=== PATIENT | male | born 1960 | race Caucasian/White ===

== ENCOUNTER 2025-05-14 06:19 | Emergency (ER) | payer OTHER, SELFPAY ==
[2025-05-14] VITALS (7 sets, daily range): BP systolic 136–180; BP diastolic 97–120; BMI 27.1
[2025-05-14 06:49] LABS: Hematocrit 45.3 % (39.0-52.0); Hemoglobin 15.7 g/dL (13.0-18.0); Mean Corp Hgb Conc. 34.7 g/dL (33.0-37.0); Mean Corpuscular Volume 87.1 fL (80.0-94.0); Nucleated Red Blood Cells % 0 % (-); Platelet Count 161 10^3/uL (130-400); Red Cell Dist. Width 12.7 % (11.5-14.5)
[2025-05-14 07:13] LABS: ALT (SGPT) 44 U/L (0-50); AST (SGOT) 31 U/L (17-59); Albumin 4.6 g/dl (3.5-5.0); Alkaline Phosphatase 89 U/L (38-126); Blood Urea Nitrogen 21 mg/dl (9-20); Calcium 9.3 mg/dl (8.4-10.2); Carbon Dioxide 24 mmol/L (22-30); Chloride 111 mmol/L (98-107); Glucose 111 mg/dl (70-99); Potassium 3.9 mmol/L (3.5-5.1); Sodium 141 mmol/L (135-145); Total Protein 7.0 g/dl (6.3-8.2); eGFR > 60.00
[2025-05-14 07:14] LABS: Troponin I 0.014 ng/ml
--- NOTE | 2025-05-14 07:49 | ED.GENMED ---
History of Present Illness
<Matt Hurtado PA-C - Last Filed: 05/14/25 12:48>
General
Chief Complaint: Blood Pressure Problem
Source: patient and spouse
Time Seen by Provider: 05/14/25 07:32
History of Present Illness
History of Present Illness:
65-year-old male with no significant past medical history presenting to the emergency department for evaluation after he awoke this morning around 1 AM from sleep stating that he just felt off, checked his blood pressure a couple times noting that
it was significantly elevated with the highest reading being 181/126. Patient notes that on Friday this week he also felt off throughout the day noting his blood pressure was elevated, was urinating more than usual and felt a little bit short of
breath but all of the symptoms subsided. Patient attributed this to he normally drinks herbal teas but accidentally had some black tea and thought it was related to caffeine. Patient does state that he monitors his blood pressure at home, will
intermittently have readings that are slightly elevated but for the most part his blood pressure is well-controlled. Presently he states he is feeling much better and asymptomatic. Denies any chest pain, current palpitations, diaphoresis,
abdominal pain, nausea, vomiting, bowel changes or urinary symptoms. Family history was noted for father and grandfather having strokes. Social history noncontributory. Patient does note last weekend he was at [facility] and had walked 6 miles
with a 20 pound weight vest and felt normal while doing so.
Past History
<Matt Hurtado PA-C - Last Filed: 05/14/25 12:48>
Past History
ED Past Medical History: None
ED Past Surgical History: None
Social History
Tobacco: Non-smoker
Alcohol: Occasional
Drug: None
Personal:
Living: with family
Employment: Employed
Review of Systems
<Matt Hurtado PA-C - Last Filed: 05/14/25 12:48>
Review of Systems
All Other Systems: ROS reviewed and negative except as documented in HPI and ROS
Phy Exam
<Matt Hurtado PA-C - Last Filed: 05/14/25 12:48>
Physical Exam
Physical Exam:
GENERAL: Alert , in no apparent distress
HEAD: Normocephalic atraumatic
EYE: Clear conjunctiva
NECK: Supple
ENT: o/p clr, mmm.
CARDIAC: Regular rate and rhythm, systolic murmur at the left sternal border.
LUNGS: Clear breath sounds bilaterally, no acute respiratory distress, no wheezes/rales/rhonchi
ABDOMEN: Soft, without focal tenderness, no r/g, no cvat
NEUROLOGICAL: Alert and oriented
SKIN: Warm and dry, skin intact.
MUSCULOSKELETAL: No edema, well perfused.
PSYCH: Normal and appropriate interaction.
Scores
<Matt Hurtado PA-C - Last Filed: 05/14/25 12:48>
Heart Failure Risk
Heart Failure Risk Score: Not Applicable
Heart Score for Chest Pain Patients
STEMI patient?: Not applicable
Withdrawal Assessment of Alcohol
Withdrawal Assessment Completed?: Not applicable
Course
<Matt Hurtado PA-C - Last Filed: 05/14/25 12:48>
Orders/Labs/Results
Orders:
Orders
05/14/25 06:30
Electrocardiogram (*1) Urgent
Reason for Study: Other
Other Reason for Exam: Respiratory Distress
Cardiac Monitoring- Treatment ONCE
EKG- Treatment ONCE
IV Insert/Care/Rem.- Treatment PRN
CR Chest - 2 Views Urgent
Comment:
Reason For Exam: respiratory distress
O2 Therapy [RESP] Urgent
Titrate/Wean O2 to maintain O2 sat greater than (%): 93
Special Instructions: TO MAINTAIN CONTINUOUS O2 SATS >/= 93%
Pulse Ox/cont/shift [RESP] Urgent
Quantity: 1
Special Instructions: continuous pulse ox
05/14/25 06:42
Complete Blood Count/With Diff Urgent
Comprehensive Metabolic Panel Urgent
NT-proBNP Urgent
Troponin I Urgent
05/14/25 09:54
Aspirin Chewable [Low Strength Aspirin] 324 mg PO NOW STA
05/14/25 09:57
Valsartan [Diovan] 80 mg PO NOW STA
05/14/25 10:43
Troponin I Routine
05/14/25 20:00
Valsartan [Diovan] 80 mg PO BID
05/15/25 08:00
Aspirin Chewable [Low Strength Aspirin] 81 mg PO DAILY
Abnormal Lab Results
05/14/25
06:42
MPV 10.5 H fL
(7.4-10.4)
Lymphocytes % 18.3 L %
(20.5-51.1)
Chloride 111 H mmol/L
(98-107)
BUN 21 H mg/dl
(9-20)
Glucose 111 H mg/dl
(70-99)
05/14/25 06:42
05/14/25 06:42
Vital Signs
Initial and Last Documented VS:
Initial Vital Signs
Temp Pulse Resp BP Pulse Ox
99.1 F 98 20 161/110 98
05/14/25 06:24 05/14/25 06:24 05/14/25 06:24 05/14/25 06:24 05/14/25 06:24
Last Documented Vital Signs
Temp Pulse Resp BP Pulse Ox
99.1 F 75 11 141/97 98
05/14/25 06:24 05/14/25 10:05 05/14/25 10:00 05/14/25 10:05 05/14/25 10:00
<Deshawn Montano, DO - Last Filed: 05/14/25 08:05>
Orders/Labs/Results
Orders:
Orders
05/14/25 06:30
Electrocardiogram (*1) Urgent
Reason for Study: Other
Other Reason for Exam: Respiratory Distress
Cardiac Monitoring- Treatment ONCE
EKG- Treatment ONCE
IV Insert/Care/Rem.- Treatment PRN
CR Chest - 2 Views Urgent
Comment:
Reason For Exam: respiratory distress
O2 Therapy [RESP] Urgent
Titrate/Wean O2 to maintain O2 sat greater than (%): 93
Special Instructions: TO MAINTAIN CONTINUOUS O2 SATS >/= 93%
Pulse Ox/cont/shift [RESP] Urgent
Quantity: 1
Special Instructions: continuous pulse ox
05/14/25 06:42
Complete Blood Count/With Diff Urgent
Comprehensive Metabolic Panel Urgent
NT-proBNP Urgent
Troponin I Urgent
05/14/25 09:54
Aspirin Chewable [Low Strength Aspirin] 324 mg PO NOW STA
05/14/25 09:57
Valsartan [Diovan] 80 mg PO NOW STA
05/14/25 10:43
Troponin I Routine
05/14/25 20:00
Valsartan [Diovan] 80 mg PO BID
05/15/25 08:00
Aspirin Chewable [Low Strength Aspirin] 81 mg PO DAILY
Abnormal Lab Results
05/14/25
06:42
MPV 10.5 H fL
(7.4-10.4)
Lymphocytes % 18.3 L %
(20.5-51.1)
Chloride 111 H mmol/L
(98-107)
BUN 21 H mg/dl
(9-20)
Glucose 111 H mg/dl
(70-99)
05/14/25 06:42
05/14/25 06:42
Vital Signs
Initial and Last Documented VS:
Initial Vital Signs
Temp Pulse Resp BP Pulse Ox
99.1 F 98 20 161/110 98
05/14/25 06:24 05/14/25 06:24 05/14/25 06:24 05/14/25 06:24 05/14/25 06:24
Last Documented Vital Signs
Temp Pulse Resp BP Pulse Ox
99.1 F 75 11 141/97 98
05/14/25 06:24 05/14/25 10:05 05/14/25 10:00 05/14/25 10:05 05/14/25 10:00
<Matt Hurtado PA-C - Last Filed: 05/14/25 12:48>
MDM/Problems Addressed
Differential Diagnosis Includes:
Hypertensive Urgency/Emergency
Valvular Dysfunction
Cardiomyopathy
ACS
Electrolyte Imbalance
Anemia
DM
Cardiac Arrhythmia
Caffeine ingestion
MDM/Problems Addressed:
65-year-old male presenting to the emergency department for evaluation of elevated blood pressures, Friday noted he felt a little bit of shortness of breath and palpitations. Most of the symptoms seem to have resolved although this morning around 1
AM he noted just feeling 'off' on arrival here patient had labs and EKG initiated, EKG nonischemic but does show a left bundle branch block, no EKGs to compare to other than 1 done 14 years ago which did not have the left bundle branch block. Labs
do show an elevated BNP, chest x-ray does show cardiomegaly with Meera B-lines. Patient hypertensive on multiple rechecks here. Will discuss case with cardiology, Dr. Montano to also see patient. Disposition pending.
<Matt Hurtado PA-C - Last Filed: 05/14/25 12:48>
*Radiology
Radiology exam reviewed: preliminary read by ED provider (Cardiomegaly)
*Pulse Oximetry
SaO2: 99
Oxygen Mode of Delivery: Room air
Patient hypoxic: no
*EKG
Heart Rate: 92
Rate: normal
Rhythm: sinus
QRS Pattern: left bundle branch block
*Enterprise Resource Analyst Interpretation
Rate: normal
Heart Rate: 88
Rhythm: sinus
*Critical Care Note
Total Time (30-74mins, 75-104mins- exclusive of procedures): Not Applicable
<Matt Hurtado PA-C - Last Filed: 05/14/25 12:48>
Patient Management
Social determinants of health affecting care: Living situation and Strong social support
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
Escalation/DeEscalation of care consider admission/obs:
Patient seen by cardiology team who will be initiating the patient on valsartan 80 mg twice daily and 81 mg of aspirin once daily. They will have the office staff contact the patient on Friday to schedule outpatient echocardiogram and stress test.
Patient feels comfortable being discharged home. Aware of return precautions.
ED Attending Note
<Matt Hurtado PA-C - Last Filed: 05/14/25 12:48>
-
Portions of this chart may have been created with voice recognition software.� Occasional wrong word or��sound alike� substitutions may have occurred due to the inherent limitations of voice recognition software.
<Deshawn Montano DO - Last Filed: 05/14/25 08:05>
ED Attending Note
Patient seen and examined by attending physician: Yes
I performed the substantive portion of visit, reviewed & personally made and approve the management plan that is documented in note by myself or HENRRY.: Yes
Discharge Plan
Departure
Patient Disposition: Home (Routine Discharge)
Date of Disposition: 05/14/25
Time of Disposition: 11:43
Patient with high blood pressure during this ER visit?: Yes
Discharge Problem:
Hypertension
Instructions: High Blood Pressure (DC)
Prescriptions:
New
valsartan 80 mg tablet
80 mg PO BID Qty: 60 0RF
aspirin 81 mg tablet
81 mg PO DAILY Qty: 30 0RF
Referrals:
Cal Norwood MD [Family Provider, Family Practice]
Chi Camarillo MD [Active, Cardiology]
Interventions
Interventions:
*Risk Screen - Suicide Last Done: 05/14/25 06:24
*General Assessment Last Done: 05/14/25 06:24
*Neglect/Abuse Screening Last Done: 05/14/25 06:24
*ED- Fall Risk Assessment Last Done: 05/14/25 06:24
*ED COVID-19 Vaccine History Last Done: 05/14/25 06:24
*Nursing Disposition Last Done: 05/14/25 11:56
ED- Cardiac Assessment Last Done: 05/14/25 07:50
ED- Neurological Assessment Last Done: 05/14/25 07:50
ED- Pulmonary Assessment Last Done: 05/14/25 07:50
Discharge Date and Time
Discharge Date/Time: 05/14/25 11:57
Print Language: TAMAZIGHT
--- NOTE | 2025-05-14 09:39 | CON.CAR ---
Addendum entered and electronically signed by Chi Camarillo MD 05/14/25 12:18:
I saw and evaluated the patient, and I provided the substantive portion of the medical decision making.
I reviewed and agree with the note by Ms Greenfield and it accurately reflects our care.
I personally performed the medical decision making of the this encounter and my assessment and plan is below:
He has no clear symptoms and certainly no obvious anginal symptoms. This could be related to his HTN and his troponins are essentially normal. He is active and has had no significant exertional symptoms.
His significant HTN could be the cause and would recommend anti-HTN treatment as well as further eval of atypical symptoms this upcoming week.
- Valsartan 80 mg bid
- lexiscan nuc stress
- echocardiogram
Original Note:
Consultation
Consultation Request
Date/Time Consultation Requested: 05/14/2025 0800
Date/Time Consultation Performed: 05/14/2025 0900
Requesting Provider: Dr. Montano
Performing Provider:
Reason for Consultation: SOB, hypertension, new LBBB
Medical History
-
Chief Complaint: SOB, elevated BP
History of Present Illness:
65 y/o pt who presents to ER today after 2 episodes this week of just not feeling well. 1st episode was on Friday at work. He felt more SOB with walking from his desk to the bathroom. He notes his heart was pounding at that time. He sat and it
improved. When he went home he checked his BP and was 170/100 mmhg. Later that night returned to 136/70. He woke this am 1 am felt not right. Mild SOB, heart felt like it was pounding he could not get comfortable. he then woke at 530a and still
felt the same. He took his BP and it was 190/126, 181/120 and came to ER. He does note he may have had some slight discomfort in the L shoulder this am as well. He currently does not have that.
-
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
Past Medical History
Past Medical History: Other (BPH, cataracts)
Past Surgical History: None
Social History
Tobacco: Non-Smoker
Alcohol: Occasional
Personal:
Living: With Family
Employment: Employed
Family History
Family History: Other (DAD CVA in his 60's. Mom from pancreatic cancer)
Allergies / Home Medications
Allergy/AdvReac Type Severity Reaction Status Date / Time
No Known Allergies Allergy Verified 05/14/25 06:23
�Medication �Instructions �Recorded �Confirmed �Type
No Meds [No Current Medications] 05/14/25 05/14/25 History
Review of Systems
-
History Source: Patient
Constitutional: No Symptoms
Respiratory: No Symptoms
Cardiac: No Symptoms
Abdomen/GI: No Symptoms
Neurological: No Symptoms
Physical Exam
Vital Signs
Temp Pulse Resp BP Pulse Ox
99.1 F 92 17 147/108 99
05/14/25 06:24 05/14/25 07:40 05/14/25 07:40 05/14/25 07:51 05/14/25 07:51
Lab Results
05/14/25 06:42
05/14/25 06:42
Troponin I 0.014 ng/ml 05/14/25 06:42
Kuq-Z-Iwwpphsdsot Pept 4640 pg/ml 05/14/25 06:42
Physical Exam
General: Well Developed, Well Nourished and No Apparent Distress
HEENT: Normocephalic and Moist Mucous Membranes
Respiratory: Clear (decreased bases) and Non Labored Respirations
Cardiac: S1/S2 and Regular Rhythm
Breast: Deferred by me
GI: Soft, Non Tender and Normal Bowel Sounds
Skin: Warm and Dry
Neuro: AO x 3
Psych: Calm
Impression / Plan
-
HTN:
-start valsartan 80mg po BID
-BMP in 1 week
-follow up as OP
LBBB:
-unknown duration
-first troponin normal, check second
-needs OP echo, lexiscan stress for eval
SOB:
-new LBBB duration unknow
-HTN on eval
-OP work up .
hyperlipidemia:
-noted in OP PCP chart
-09/2023 lipids: TC 208,TG367, CDR731, HDL 44
-update as OP
elevated glucose:
- OP hgba1c 5.5 09/2023.
Will have OP office call pt to arrange follow up and testing .
Data Reviewed
-
EKG: Tracing Personally Visualized and interpreted (NSR 92 bpm, LBBB)
Radiology: Report Reviewed by me (CXR 05/14/2025:Cardiomegaly. Multiple thin small horizontal densities in the lateral aspect of both lower lungs.in the location of Meera B lines, but the vasculature does not appear to be actively congested.)
Labs: Labs Reviewed by me, Discussed with Physician and Discussed with Patient
Old Records: Reviewed
Critical Care Time (in minutes): OP PCP notes from 10/01/2023 summarized as above.
[2025-05-14] MEDS: DIOVAN 80 MG PO (10:05)
[2025-05-14] MEDS: LOW STRENGTH ASPIRIN 324 MG PO (10:05)
[2025-05-14 11:24] LABS: Troponin I 0.015 ng/ml
== END 2025-05-14 11:57 | disposition home or self-care (01) ==
LOC: EMR 06:19
PROVIDERS: Emergency Medicine; Nurse Practitioner; EMERGENCY PHYSICIAN Emergency Medicine; FAMILY PHYSICIAN Family Medicine
DX: I10 Essential (primary) hypertension (principal); R06.02 Shortness of breath; I44.7 Left bundle-branch block, unspecified; E78.5 Hyperlipidemia, unspecified; I51.7 Cardiomegaly
CPT/HCPCS: 99285; 71046; 80053; 83880; 84484; 85025; 93005

== ENCOUNTER → 2025-05-24 09:01 | Outpatient (REF) | payer OTHER, SELFPAY | LOC: HWRCS 09:01 | PROVIDERS: ATTENDING PHYSICIAN Internal Medicine Cardiovascular Disease; FAMILY PHYSICIAN Family Medicine | DX: I44.7 Left bundle-branch block, unspecified (principal) | CPT/HCPCS: 93306 ==

== ENCOUNTER 2025-05-27 11:17 | Day surgery (SDC) | payer OTHER, SELFPAY ==
[2025-05-27] VITALS (10 sets, daily range): BP systolic 122–144; BP diastolic 73–94; BMI 27.4
--- NOTE | 2025-05-27 20:59 | ITS.CL.PN ---
Mid Level Java Developer - Procedure Note
Procedure
Procedure Note:
CARDIAC CATHETERIZATION REPORT
Date of Procedure: 05/27/2025
Referring: Dr. Elbert Vital MD
Indication: cardiomyopathy with severely reduced EF
PROCEDURE(S)
1. right heart catheterization
2. left heart catheterization
3. coronary angiography
ACCESS
1. 6F right radial artery (closure: radial band)
2. 5F right antecubital vein (closure: manual hemostasis)
CATHETERS
1. 5F Walden-Shweta
2. 6F JR4
3. 6F JL4
MODERATE SEDATION: 35 minutes of moderate sedation was utilized. An independent medical appliance maker was present to assist with and help manage the patient's level of consciousness and physiologic status.
HEMODYNAMIC DATA
LV 136/19 (EDP 22 with A wave to 35) mmHg
AO 139/85 (mean 100) mmHg
RA 15 mmHg
RV 37/12 (EDP 15) mmHg
PA 42/23 (mean 31) mmHg
PCWP 23 mmHg
SaO2 96.9%
SvO2 68.0%
Hb 15.1 g/dL
Weight 89 kg
CO/CI 4.56/2.18 L/min/m2
SVR 1492 dsc*-5
PVR 1.8 Wood units
CORONARY ANGIOGRAPHY
Dominance: Right
LM: Large, normal
LAD: Large vessel giving rise to a small D1, moderate caliber D2, and small D3 before wrapping around the apex. There is no coronary artery disease.
LCx: Large vessel giving rise to a small OM1, large OM2, and moderate caliber LPL branch. There is no coronary artery disease.
RCA: Large vessel giving rise to a moderate caliber RPDA, moderate caliber RPL1, moderate caliber RPL2, and large RPL3. There is no coronary artery disease.
RADIATION: dose 184 mGy; DAP 14.6 Gy*cm2; fluoroscopy time 3.3 min
CONCLUSIONS
1. Normal coronary arteries and right dominant system
2. Moderately elevated biventricular filling pressures, moderate postcapillary pulmonary hypertension, and low normal cardiac index.
3. No aortic stenosis on hemodynamic pullback
RECOMMENDATIONS
1. Workup for etiology of nonischemic cardiomyopathy
2. Titration of GDMT for HFrEF. Will initiate metoprolol 50 mg daily and dapagliflozin 10 mg daily today.
Copy to: Dr. Elbert Vital MD (lube man)
Signed: Cody Hester MD, PhD
== END 2025-05-27 17:00 | disposition home or self-care (01) ==
LOC: CATH 11:17
PROVIDERS: ATTENDING PHYSICIAN Student in an Organized Health Care Education/Training Program; FAMILY PHYSICIAN Family Medicine
DX: I42.8 Other cardiomyopathies (principal); I27.20 Pulmonary hypertension, unspecified; I50.22 Chronic systolic (congestive) heart failure
CPT/HCPCS: 82565; 93460; 99152; 99153; C1769; C1894; Q9967

== ENCOUNTER 2025-07-29 08:33 | Outpatient (RCR) | payer OTHER, SELFPAY ==
[2025-07-06 14:54] LABS: Glucose - Point of Care 94 mg/dl (70-99)
[2025-07-06 15:46] LABS: Glucose - Point of Care 122 mg/dl (70-99)
[2025-07-11 08:37] LABS: HDL Cholesterol 48 mg/dl; LDL Cholesterol, Calculated 97 mg/dl; Very Low Density Lipoprotein 27 mg/dl (0-30)
== END 2025-07-29 23:59 | disposition home or self-care (01) ==
LOC: CRHB 08:33
PROVIDERS: ATTENDING PHYSICIAN Internal Medicine Cardiovascular Disease; FAMILY PHYSICIAN Family Medicine; REFERRING PHYSICIAN Internal Medicine Cardiovascular Disease
DX: I50.20 Unspecified systolic (congestive) heart failure (principal); I50.22 Chronic systolic (congestive) heart failure (principal)
CPT/HCPCS: 36415; 80061; 82962; 93797; 93798

== ENCOUNTER 2025-08-12 08:54 | Outpatient (RCR) | payer OTHER, SELFPAY | END 2025-08-12 10:11 | disposition home or self-care (01) | LOC: CRHB 08:54 | PROVIDERS: ATTENDING PHYSICIAN Internal Medicine Cardiovascular Disease; FAMILY PHYSICIAN Family Medicine; REFERRING PHYSICIAN Internal Medicine Cardiovascular Disease | DX: I50.20 Unspecified systolic (congestive) heart failure (principal) | CPT/HCPCS: 93797; 93798 ==